=== PATIENT | male | born 1945 | race Caucasian/White ===

== ENCOUNTER 2024-05-28 07:00 | Day surgery (SDC) | payer MEDICARE, OTHER ==
[2024-05-08 14:33] VITALS: BP 112/69
[~2024-05-28] VITALS: Ht 177.8 cm; Wt 90.9 kg
[2024-05-28] VITALS (8 sets, daily range): BP systolic 111–176; BP diastolic 67–98
[~2024-05-28 07:00] MED LIST: CEFAZOLIN SODIUM 2 GM/20 ML SYR IV SCH; FLOMAX0.4 MG PO; GABAPENTIN 600 MG TAB PO SCH; GABAPENTIN300 MG PO; HYZAAR 100-12.1 EACH PO; IBLOOD GLUCOSE TEST STRIP 1 EA TEST VI PRN; INTRA-ARTICULAR ANALGESIC INJECTION XX SCH; LACTATED RINGER'S 1,000 ML IV SCH; LIDOCAINE HCL 1% 5 ML SDV INJ ONE; MOBIC15 MG PO; NORVASC5 MG PO; OMEPRAZOLE40 MG PO; OXYCODONE HCL 5 MG TAB PO SCH; OXYCODONE HCL5 MG PO; PANTOPRAZOLE SODIUM 40 MG TABEC PO SCH; PROSCAR5 MG PO; ROPIVACAINE IN 0.9% SOD CHL/PF 545 ML ELS.PMP.HR IRRIGATION SCH; STOOL SOFTENER1 EAC4 PO; TRANEXAMIC ACID 2,000 MG in SODIUM CHLORIDE 0.9% 100 ML IV SCH; XARELTO10 MG PO; ZOCOR40 MG PO; ondansetron HCL 4 MG TAB PO SCH
--- NOTE | 2024-05-28 07:22 | NUR ---
VISITED DURING SPIRITUAL CARE ROUNDS. PT SUPPORTED BY FAMILY MEMBER IN ROOM, BOTH DENY IMMEDIATE NEEDS. VP REVENUE CYCLE PROVIDED SUPPORTIVE PRESENCE, HOSPITALITY, PRAYER, FACILITATED INTERACTION WITH THERAPY ANIMAL.
[2024-05-28] MEDS ORDERED: Ropivacaine HCl 20 MG/10 ML AMP ONE (07:28)
[2024-05-28] MEDS ORDERED: LIDOCAINE HCL 2% 5 ML SDV ONE ×3 (07:34→09:00)
[2024-05-28] MEDS ORDERED: Ropivacaine HCl 0.5% 30 ML VIAL ONE (07:34)
[2024-05-28] MEDS ORDERED: SODIUM CHLORIDE 0.9% 40 ML IV ONE (07:34)
[2024-05-28] MEDS ORDERED: dexmedeTOMIDine HCl 200 MCG/2 ML VIAL ONE (07:34)
[2024-05-28] MEDS ORDERED: propofoL 200 MG/20 ML VIAL ONE ×3 (07:34→11:02)
[2024-05-28] MEDS ORDERED: DEXAMETHASONE SOD PHOS 4 MG/ML VIAL ONE (07:34)
[2024-05-28] MEDS ORDERED: OXYCODONE HCL 5 MG TAB PO PRN (07:45)
[2024-05-28] MEDS ORDERED: KETOROLAC TROMETHAMINE 30 MG/ML VIAL IV PRN (07:45)
[2024-05-28] MEDS ORDERED: HYDROmorphone HCL 4 MG TAB ONE (07:46)
[2024-05-28] MEDS ORDERED: HYDROmorphone HCL 4 MG TAB PO ONE (08:00)
[2024-05-28] MEDS ORDERED: HYDROmorphone HCL 4 MG TAB PO PRN ×2 (08:45→20:00)
[2024-05-28] MEDS ORDERED: ePHEDrine sulfate 50 MG/ML AMP ONE (09:00)
[2024-05-28] MEDS ORDERED: LACTATED RINGER'S 1,000 ML IV ONE (10:26)
[2024-05-28] MEDS ORDERED: TRANEXAMIC ACID 2,000 MG in SODIUM CHLORIDE 0.9% 100 ML IV ONE (10:37)
[2024-05-28] MEDS ORDERED: KETAMINE in NS 50 MG/5 ML SYR ONE (10:37)
--- NOTE | 2024-05-28 12:22 | NUR ---
05/28/24 Maribteh2 Catherine George 1149 PT TO PACU AWAKE AND ALERT. PT ON ROOM AIR MAINTAIN SATS ABOVE 90%. INK MAKER AT BEDSIDE TO TAKE PICTURE OF LT KNEE. ON Q PUMP SET AT 6ML/HR PER DR GEORGE ORDER.
[2024-05-28] MEDS ORDERED: NALOXONE HCL 0.4 MG SYR IV PRN (12:30)
[2024-05-28] MEDS ORDERED: IBLOOD GLUCOSE TEST STRIP 1 EA TEST VI PRN (12:30)
[2024-05-28] MEDS ORDERED: fentaNYL citrate 50 MCG/ML SDV IV PRN (12:30)
[2024-05-28] MEDS ORDERED: HYDROmorphone HCL 1 MG/ML SYR IV PRN (12:30)
--- NOTE | 2024-05-28 13:07 | NUR ---
Pt arrived to room at about 1300 hours, Pt report received from MICHELLE Mckay at 1303 hours. Pt is A&O, at bedside. Pt rates his pain as tolerable at a 7 out of 10. Cryo cuff on. Dressing is CDI. Pt oriented to room and call light.
--- NOTE | 2024-05-28 13:10 | OR ---
[facility] [address] [place], [place] [address] Signed DATE OF OPERATION: 05/28/2024 SURGEON: Mary George MD PREOPERATIVE DIAGNOSIS: Failed partial knee replacement, left. POSTOPERATIVE DIAGNOSIS: Failed partial knee replacement, left. PROCEDURE PERFORMED: Removal of partial knee replacement with revision total knee arthroplasty, both components. INTERNATIONAL SOURCING MANAGER: Lila Mccurdy PA-C. Lila was present and critical for all portions of the procedure. ANESTHESIA: Spinal. BLOOD LOSS: None. TOURNIQUET TIME: 141 minutes. IMPLANT: [place] Triathlon size 6 with a 12 mm polyethylene and a 35 mm patella. BRIEF HISTORY: Christopher is a 79-year-old gentleman with pain in his knee since his partial knee replacement was done several years ago. He wished to proceed with removal of that and placement of a total knee. Risks, benefits, and alternatives were discussed with him and he elected to proceed. Workup for infection was negative. DESCRIPTION OF PROCEDURE: Once consent was obtained, he was taken to the operating room. After adequate anesthesia, he was placed on the operating table with a hip bump. The left leg was prepped and draped in a standard sterile fashion and a sterile tourniquet was applied. Electronically Signed By: MARY GEORGE MD 05/28/24 1310 PATIENT NAME: CHRISTOPHER SAEED OPERATIVE REPORT DATE OF : 45 REPORT #: [id number] PHYSICIAN: MARY GEORGE MD PCP: ADAM GOMEZ MD REPORT IS CONFIDENTIAL AND NOT TO BE RELEASED WITHOUT AUTHORIZATION [facility] [address] [place], [place] [address] Signed The leg was exsanguinated using Esmarch bandage. Tourniquet inflated to 250 mmHg. Standard anterior curvilinear incision incorporating his incision from the partial was taken through skin and subcutaneous tissue. Median parapatellar arthrotomy was performed. The synovium of the knee was extensively fibrotic throughout. This was excised as we went to allow better mobilization of the quadriceps tendon and the patella. The patella was cut early on to allow better mobilization laterally. The front of the knee underneath the patellar tendon and in the notch was completely fibrotic and was excised. The components appeared to be intact. The MCL was elevated as a sleeve around the posteromedial corner. The synovectomy was completed anteriorly, medially, laterally and superiorly to allow better mobilization of the tissue. This was a partial synovectomy. The navigation rays were then placed in the femur and tibia. The leg was then registered with the computer as was the fine anatomic points of the knee. The polyethylene was removed for this portion of the procedure. It was then replaced and the four ligamentous poses were undertaken. Slight adjustments were made to the femoral component. The polyethylene was once again removed and the femoral and tibial components were removed with relative ease. The underlying cement was removed. There was a small fibrous plug underneath the femoral component along the PEG and this was sent for culture. The remainder of the cement was removed. The robot was then brought in and the four straight cuts and 2 angle cuts were made with care taken to protect the patellar tendon and MCL. The bony remnants were removed as were a large osteophytes posteriorly. The trials were then positioned. We felt because we had fresh bone and all the cuts and his bone was in good condition, the stems were not necessary. The trials were positioned, knee was taken from 0-100 degrees with good patellar tracking, although this did require lateral release due to the extensive lateral fibrosis. The patella was cut sized and drilled for a 35 mm patella. The femoral drill holes were completed as was the tibial keel punch. The implants were selected and cement was mixed and cement was placed on all implants and all bone surfaces. The tibia was impacted into position first and all excess cement was removed. The polyethylene was snapped into position and the femur was impacted. Again, all excess cement was removed. The knee was extended and loaded and the patella was clamped into position. The remaining overflow was removed. The cement was allowed to harden. Once it hardened sufficiently, any remaining overflow was removed using osteotomes. The periarticular soft tissues were injected with 80 mL ropivacaine and Toradol mixture. The patella was noted to track well. The On-Q pain pump was placed in the adductor canal from the suprapatellar pouch. The arthrotomy was then closed using #2 FiberWire, along with #2 StrataFix. The subcutaneous tissue was closed with 0-StrataFix and the skin with emily. Wound was dressed with Acticoat 7 dressing and a bulky Martinez. He tolerated the procedure well. All sponge, needle, and instrument counts were correct. Electronically Signed By: MARY GEORGE MD 05/28/24 1310 PATIENT NAME: CHRISTOPHER SAEED OPERATIVE REPORT DATE OF : 45 REPORT #: [id number] PHYSICIAN: MARY GEORGE MD PCP: ADAM GOMEZ MD REPORT IS CONFIDENTIAL AND NOT TO BE RELEASED WITHOUT AUTHORIZATION [address] [place], [place] [address] Signed Mary George MD BA/CHERYLE /[id number] Copies: ~ Electronically Signed By: MARY GEORGE MD 05/28/24 1310 PATIENT NAME: CHRISTOPHER SAEED BELTRAN OPERATIVE REPORT DATE OF : 45 REPORT #: [id number] PHYSICIAN: MARY GEORGE MD PCP: ADAM GOMEZ MD REPORT IS CONFIDENTIAL AND NOT TO BE RELEASED WITHOUT AUTHORIZATION
--- NOTE | 2024-05-28 14:52 | NUR ---
Physical therapist advised that the pt did well with his assessment. He advised that he contacted his gang supervisor pipe lines and that they do not have a CPM available at this time and that they did notify Dr. George of this. He stated that the pt did void another 50-100ml of urine. Will bladder scan the pt shortly as I was advised by BODY CARE MANAGER that he had a total of 2.5L of fluid.
[2024-05-28] MEDS ORDERED: GABAPENTIN 300 MG CAP PO SCH (15:00)
[2024-05-28] MEDS ORDERED: CEFAZOLIN SODIUM 2 GM/20 ML SYR IV SCH (15:00)
[2024-05-28] MEDS ORDERED: ACETAMINOPHEN 500 MG TAB PO SCH (15:00)
[2024-05-28] MEDS ORDERED: SEVOFLURANE 250 ML BTL INH ONE (15:06)
--- NOTE | 2024-05-28 15:07 | NUR ---
LATE ENTRY: PT WAS TO VOID ABOUT 20ML OF CLEAR YELLOW URINE USING URINAL WHILE LAYING IN BED.
--- NOTE | 2024-05-28 15:45 | NUR ---
PC to Dr. George cell phone to update him on this pt's voiding status. Pt has voided 50ml of clear yellow urine upon arrival to the floor. He later voided an additional 50ml, was bladder scanned for >796ml, and got up to void an additional 75ml. Verbal order received from Dr. George to place a galindo now and remove it at 0600 hours 05/29/24. Repeated back the order.
[2024-05-28] MEDS ORDERED: LIDOCAINE 2% VISCOUS 6 ML SYR ONE (16:02)
--- NOTE | 2024-05-28 16:40 | NUR ---
Pt's came to nurse's station to advise that the pt desats when he sleeps. In with pt for assessment. CPOX at 88% on room air. Pt placed on 1LPM O2 via NC while resting, sats increased to 92%. Call light in reach.
[2024-05-28] MEDS ORDERED: LIDOCAINE 2% VISCOUS 6 ML SYR TOP ONE (18:00)
--- NOTE | 2024-05-28 19:15 | NUR ---
RECIEVED REPORT FROM MICHELLE BAZAN. PATIENT AWAKE IN BED. PATIENT NC REPOSITIONED SO BOTH PRONGS ARE CORRECTLY PLACED. 1L VIA NC IN PLACE. ON-Q SET AT 6. CRYOCUFF RESERVOIR REFILLED WITH ICE. SCD's IN PLACE. PATIENT DENIES ADDITIONAL NEEDS AT THIS TIME. FAMILY AT THE BEDSIDE. CALL LIGHT IN REACH.
--- NOTE | 2024-05-28 20:02 | NUR ---
CONTACTED PROVIDER FOR CLARIFICATION REGARDING ORDER FOR ON-Q RATE. TELEPHONE ORDER WITH READBACK RECIEVED FOR ON-Q RATE OF 6ML/HR. TELEPHONE ORDERS WITH READ-BACK RECIEVED FOR ORAL PAIN MEDICATION. ORDERS ENTERED.
--- NOTE | 2024-05-28 20:53 | NUR ---
IN ROOM TO ADMINISTER MEDICATIONS, SEE E-MAR. ASSESSMENT COMPLETED. ON-Q AT 6ML/HR. CRYOCUFF ON LEFT LEG. 1L VIA NC IN PLACE. PATIENT DENIES ADDITIONAL NEEDS AT THIS TIME. CALL LIGHT IN REACH. BED ALARM ACTIVE.
[2024-05-28] MEDS ORDERED: SENNOSIDES 1 TAB PO SCH (21:00)
--- NOTE | 2024-05-28 22:48 | NUR ---
IN ROOM TO ADMINISTER MEDICATIONS, SEE E-MAR. BHATT CARE PROVIDED. 1L VIA NC IN PLACE. ON-Q AT 6ML/HR. CRYOCUFF IN PLACE ON LEFT KNEE. PATIENT DENIES ADDITIONAL NEEDS AT THIS TIME. CALL LIGHT IN REACH.
--- NOTE | 2024-05-28 23:56 | NUR ---
IN ROOM TO ADDRESS PATIENT CPOX ALARM. PATIENT SLEEPING. 1L VIA NC IN PLACE. O2 SATURATION DOWN TO 83%. TITRATED OXYGEN TO 2L. O2 SATURATION AT 96%. 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 CALL LIGHT IN REACH.
--- NOTE | 2024-05-29 00:36 | NUR ---
CPOX ALARMING. SpO2 HIGH 70'S. PT STIRS WHEN THIS RN ENTERS ROOM. SpO2 QUICKLY BACK TO 90'S WITH 2L/NC IN PLACE. OXYGEN TITRATED TO 3L/NC. DISCUSSED WITH PT WHO REPORTS HE WAS TOLD AT ONE POINT HE SHOULD BE WEARING CPAP BUT "DID NOT LIKE IT." PT REPORTS HE IS RESTING WELL. NO NEEDS AT THIS TIME.
[2024-05-29 02:02] VITALS: BP 117/63
--- NOTE | 2024-05-29 02:24 | NUR ---
IN ROOM TO ROUND ON PATIENT. VITALS COMPLETE. ASSESSMENT COMPLETE. PATIENT RESTING IN BED. 3L VIA NC IN PLACE. CPOX IN PLACE. SCD's IN PLACE. PATIENT DENIES PAIN. ON-Q SET AT 6ML/HR. CRYOCUFF RESERVOIR REFILLED WITH ICE. WATER REFILLED. BHATT EMPTIED. PATIENT DENIES ADDITIONAL NEEDS AT THIS TIME. CALL LIGHT IN REACH. BED ALARM ACTIVE.
--- NOTE | 2024-05-29 04:13 | NUR ---
IN ROOM TO ROUND ON PATIENT. PATIENT ASLEEP IN BED. O2 3L VIA NC IN PLACE. CPOX IN PLACE. PATIENT SNORING MILDY. RESPIRATIONS EVEN AND UNLABORED. CALL LIGHT IN REACH. BED ALARM ACTIVE.
[2024-05-29 05:58] VITALS: BP 159/80
--- NOTE | 2024-05-29 06:19 | NUR ---
IN ROOM TO ROUND ON PATIENT. VITALS ASSESSED. BHATT CATHETER REMOVED PER ORDER. WATER REFILLED. 3L VIA NC IN PLACE. CPOX IN PLACE. ON-Q AT 6ML/HR. PATIENT DENIES PAIN. PATIENT DENIES ADDITIONAL NEEDS AT THIS TIME. CALL LIGHT IN REACH. BED ALARM ACTIVE.
--- NOTE | 2024-05-29 07:27 | NUR ---
REPORT FROM ART CONSERVATOR RN.
--- NOTE | 2024-05-29 07:55 | NUR ---
PATIENT IN BED AT THIS TIME. AUTOMATIC DRILL OPERATOR WENT INTO PATIENTS ROOM FOR HOURLY ROUNDS. CALL LIGHT WITHIN REACH, NO FURTER NEEDS AT THIS TIME.
[2024-05-29] MEDS ORDERED: Rivaroxaban 10 MG TAB PO SCH (08:00)
[2024-05-29 08:12] VITALS: BP 159/80
--- NOTE | 2024-05-29 08:14 | NUR ---
MORNING ASSESSMENT IS COMPLETE. PATIENT DENIES PAIN OR NAUSEA. LEFT LEG DRESSING IS CDI, FOOT SCD'S ARE ON. PATIENT IS WEARING 3L OF O2 FOR 96% AND IS AWARE THAT HE HAS SIGNIFICANT SLEEP APNEA. CRYO CUFF REFILLED WITH ICE. PATIENT IS SITTING UP IN BED TO EAT BREAKFAST, IS IN ROOM ASSISTING PATIENT. NO OTHER NEEDS AT THIS TIME.
[2024-05-29] MEDS ORDERED: cefuroxime axetiL 250 MG TAB PO SCH (09:00)
--- NOTE | 2024-05-29 09:37 | NUR ---
PT SITTING IN BED JOKING WITH STAFF. DECLINED THE LAXATIVE. CRYO IN PLACE
[2024-05-29 10:03] VITALS: BP 153/68
--- NOTE | 2024-05-29 10:05 | NUR ---
PATIENT IN BED AT THIS TIME. FALSEWORK BUILDER CHARTED VITALS AND I&O'S. CALL LIGHT WITHIN REACH, NO FURTHER NEEDS AT THIS TIME.
--- NOTE | 2024-05-29 10:47 | NUR ---
PT NOT AVAILABLE FOR VISIT. PROVIDED PRAYER.
--- NOTE | 2024-05-29 10:57 | NUR ---
MED REC COMPLETE
--- NOTE | 2024-05-29 10:58 | NUR ---
PHYSICAL THERAPY IN TO WORK WITH PATIENT.
--- NOTE | 2024-05-29 11:00 | NUR ---
In and spoke with pt and his . Pt denies needs. States he has been walking in the [place] with his . He has a [facility] care cooler in place. They have 4 steps into the home. Both state adult son will assist them into the home. Pt has DME in place from surgery. They deny any needs and deny financial issues. Pt will dc today when Lila visits from the office.
--- NOTE | 2024-05-29 11:17 | NUR ---
PATIENT IS RESTING IN BED, NO NEEDS. PHYSICAL THERAPY HAS CLEARED PATIENT.
--- NOTE | 2024-05-29 12:10 | NUR ---
Spoke with JOANN Sharp. She is discharging pt. Asked if she would like CM to send orders to [facility]. She states she will do so from the office. She denies any needs for this pt. Home today.
[2024-05-29] MEDS ORDERED: CEFUROXIME250 MG PO (12:14)
[2024-05-29] MEDS ORDERED: XARELTO10 MG PO (12:15)
[2024-05-29] MEDS ORDERED: ACETAMINOPHEN500 MG PO (12:16)
[2024-05-29] MEDS ORDERED: GABAPENTIN300 MG PO (12:16)
[2024-05-29] MEDS ORDERED: SENNA LAX8.6 MG PO (12:16)
[2024-05-29] MEDS ORDERED: HYDROMORPHONE HC4 MG PO (12:17)
[2024-05-29 13:22] VITALS: BP 137/61
--- NOTE | 2024-05-29 13:36 | NUR ---
PATIENT GIVEN DISCHARGE INSTRUCTIONS, RIGHT ARM IV REMOVED. PATIENT GIVEN AFTERNOON MEDICATIONS AND WHEELCHAIR RIDE TO FRONT DOOR.
== END 2024-05-29 13:35 | disposition home or self-care (01) ==
LOC: MS 07:00 → DS 07:00 → DSVR 07:00 → MS 09:00 → EDSTATUS 09:15 → MS 10:55 → DSVR 13:00 → MS 05-29 09:15 → DS 05-29 13:35
PROVIDERS: ATTEND Specialist
PROC: 0SW Lower Joints, Revision (ICD-10-PCS; principal; 2024-05-28 09:00)
DX: T84.093A Other mechanical complication of internal left knee prosthesis, initial encounter (principal); Y83.8 Other surgical procedures as the cause of abnormal reaction of the patient, or of later complication, without mention of misadventure at the time of the procedure
CPT/HCPCS: 01402; 64447; 64450; 64454; 73560; 76942; 87205; 97110; 97116; 97161; 97530; A9270; C1713; C1776; J0690; J1100; J1885; J2003; J2704; J2795; J3010; J3490; J7121; J7999